=== PATIENT | female | born 1970 | race Asian ===

== ENCOUNTER 2020-02-07 09:28 | Emergency (ER) | payer BC, OTHER ==
[~2020-02-07] VITALS: Ht 157.5 cm; Wt 64.4 kg
--- NOTE | 2020-02-07 09:40 | NUR ---
Chest pain earlier this am. Patient a/ox4, breathing even and unlabored, denies pain at this time. Needs attended. Kept comfortable, attached to the library monitor.
--- NOTE | 2020-02-07 09:50 | NUR ---
Patient seen and evaluated by Dr. Grider.
[2020-02-07] MEDS ORDERED: CLONIDINE HCL 0.1 MG TABLET ONE (09:58)
[2020-02-07] MEDS: CLONIDINE HCL 0.1 MG TABLET PO ONE (10:01)
[2020-02-07 10:33] LABS: BASOPHILS % (AUTO) 0.7 % (0.0-2.0); EOSINOPHILS % (AUTO) 6.1 % (0.0-6.0); HEMATOCRIT 40 % (33-45); HEMOGLOBIN 12.6 g/dL (11.5-14.8); LYMPHOCYTES # (AUTO) 2.3 /CMM (0.8-4.8); LYMPHOCYTES % (AUTO) 40.8 % (20.0-44.0); MEAN CORPUSCULAR HGB CONC 32 g/dl (31.0-36.0); MEAN CORPUSCULAR VOLUME 80 fL (82-100); MONOCYTES # (AUTO) 0.4 /CMM (0.1-1.30); MONOCYTES % (AUTO) 6.5 % (2.0-12.0); NEUTROPHILS # (AUTO) 2.6 /CMM (1.8-8.9); NEUTROPHILS % (AUTO) 45.9 % (43.0-81.0); PLATELET COUNT (AUTO) 234 /CMM (150-450); RED BLOOD CELL COUNT(AUTO) 4.98 MIL/uL (4.0-5.2); WHITE BLOOD COUNT (AUTO) 5.6 K/uL (4.3-11.0)
[2020-02-07 10:42] LABS: CALCIUM, SERUM 8.7 mg/dL (8.5-10.1); CREATININE 0.5 mg/dL (0.6-1.3); POTASSIUM 3.4 mmol/L (3.5-5.1)
[2020-02-07 11:12] VITALS: BP 149/81
--- NOTE | 2020-02-07 11:12 | NUR ---
Patient a/ox4, breathing even and unlabored, no sob noted, needs attended, denies pain. BP improved. IV removed. Catheter intact and site benign. Pressure and 4x4 applied to site. No bleeding noted.Patient discharged to home in stable condition. Written and verbal after care instructions given. Patient verbalizes understanding of instruction.
== END 2020-02-07 11:12 | disposition home or self-care (01) ==
LOC: ER 09:33
DX: I10 Essential (primary) hypertension (principal); R07.89 Other chest pain
CPT/HCPCS: 36415; 71045-TC; 80048-TC; 84484-TC; 85025-TC

== ENCOUNTER 2020-04-26 08:51 | Outpatient (CLI) | payer BC, OTHER ==
[2020-04-26 10:13] LABS: CALCIUM, SERUM 8.4 mg/dL (8.5-10.1); CREATININE 0.6 mg/dL (0.6-1.3); POTASSIUM 3.5 mmol/L (3.5-5.1)
== END 2020-04-26 23:59 | disposition home or self-care (01) ==
LOC: LAB 08:51
PROVIDERS: ATTEND Family Medicine
DX: E83.51 Hypocalcemia (principal); R25.2 Cramp and spasm; Z79.899 Other long term (current) drug therapy
CPT/HCPCS: 36415; 80048-TC

== ENCOUNTER 2020-06-05 09:06 | Outpatient (CLI) | payer BC, OTHER ==
[2020-06-05 09:59] LABS: BASOPHILS % (AUTO) 0.6 % (0.0-2.0); EOSINOPHILS % (AUTO) 4.1 % (0.0-6.0); HEMATOCRIT 41 % (33-45); HEMOGLOBIN 13.3 g/dL (11.5-14.8); LYMPHOCYTES # (AUTO) 2.1 /CMM (0.8-4.8); LYMPHOCYTES % (AUTO) 30.4 % (20.0-44.0); MEAN CORPUSCULAR HGB CONC 33 g/dl (31.0-36.0); MEAN CORPUSCULAR VOLUME 79 fL (82-100); MONOCYTES # (AUTO) 0.4 /CMM (0.1-1.30); MONOCYTES % (AUTO) 6.1 % (2.0-12.0); NEUTROPHILS # (AUTO) 4.1 /CMM (1.8-8.9); NEUTROPHILS % (AUTO) 58.8 % (43.0-81.0); PLATELET COUNT (AUTO) 241 /CMM (150-450); RED BLOOD CELL COUNT(AUTO) 5.17 MIL/uL (4.0-5.2); WHITE BLOOD COUNT (AUTO) 6.9 K/uL (4.3-11.0)
[2020-06-05 10:05] LABS: ALBUMIN 4.2 g/dL (3.4-5.0); BILIRUBIN,TOTAL 0.5 mg/dL (0.2-1.0); CALCIUM, SERUM 9.6 mg/dL (8.5-10.1); CREATININE 0.7 mg/dL (0.6-1.3); POTASSIUM 3.5 mmol/L (3.5-5.1); TOTAL PROTEIN, SERUM 8.4 g/dL (6.4-8.2)
[2020-06-05 10:07] LABS: BILIRUBIN,URINE NEGATIVE (NEGATIVE); COLOR,URINE YELLOW (YELLOW); LEUKOCYTE ESTERASE ,URINE TRACE (NEGATIVE); NITRITE, URINE POSITIVE (NEGATIVE); PROTEIN,URINE NEGATIVE (NEGATIVE); UGLUCOSE NEGATIVE (NEGATIVE); UROBILINOGEN,URINE 0.2 EU/dL (0.2)
[2020-06-05 10:17] LABS: THYROID STIMULATING HORMONE 1.443 uIU/mL (0.358-3.74)
[2020-06-05 12:07] LABS: BACTERIA,URINE Many /HPF (None Seen); CALCIUM OXALATE CRYSTALS,UR Few /HPF (None Seen); RBC,URINE 0-2 /HPF (0-2); SQUAMOUS EPITHELIAL CELL,UR Few /HPF (None Seen)
== END 2020-06-05 23:59 | disposition home or self-care (01) ==
LOC: LAB 09:06
PROVIDERS: ATTEND Family Medicine
DX: I10 Essential (primary) hypertension (principal); E55.9 Vitamin D deficiency, unspecified; Z79.899 Other long term (current) drug therapy
CPT/HCPCS: 36415; 80053-TC; 80061-TC; 81001; 82306; 84439-TC; 84443-TC; 85025-TC; 87086-TC; 87186-TC

== ENCOUNTER 2020-10-21 09:38 | Outpatient (CLI) | payer BC, OTHER ==
[2020-10-21 10:18] LABS: BASOPHILS % (AUTO) 0.8 % (0.0-2.0); EOSINOPHILS % (AUTO) 4.7 % (0.0-6.0); HEMATOCRIT 38 % (33-45); HEMOGLOBIN 12.4 g/dL (11.5-14.8); LYMPHOCYTES # (AUTO) 2.2 K/uL (0.8-4.8); LYMPHOCYTES % (AUTO) 39.8 % (20.0-44.0); MEAN CORPUSCULAR HGB CONC 33 g/dl (31.0-36.0); MEAN CORPUSCULAR VOLUME 80 fL (82-100); MONOCYTES # (AUTO) 0.4 K/uL (0.1-1.30); MONOCYTES % (AUTO) 6.8 % (2.0-12.0); NEUTROPHILS # (AUTO) 2.6 K/uL (1.8-8.9); NEUTROPHILS % (AUTO) 47.9 % (43.0-81.0); PLATELET COUNT (AUTO) 239 K/uL (150-450); RED BLOOD CELL COUNT(AUTO) 4.74 MIL/uL (4.0-5.2); WHITE BLOOD COUNT (AUTO) 5.4 K/uL (4.3-11.0)
[2020-10-21 10:22] LABS: BILIRUBIN,URINE NEGATIVE (NEGATIVE); COLOR,URINE YELLOW (YELLOW); LEUKOCYTE ESTERASE ,URINE TRACE (NEGATIVE); NITRITE, URINE NEGATIVE (NEGATIVE); PROTEIN,URINE NEGATIVE (NEGATIVE); UGLUCOSE NEGATIVE (NEGATIVE); UROBILINOGEN,URINE 0.2 EU/dL (0.2)
[2020-10-21 11:30] LABS: ALBUMIN 4.2 g/dL (3.4-5.0); BILIRUBIN,TOTAL 0.4 mg/dL (0.2-1.0); CALCIUM, SERUM 8.6 mg/dL (8.5-10.1); CREATININE 0.6 mg/dL (0.6-1.3); POTASSIUM 3.8 mmol/L (3.5-5.1); TOTAL PROTEIN, SERUM 8.4 g/dL (6.4-8.2)
[2020-10-21 11:45] LABS: THYROID STIMULATING HORMONE 0.926 uIU/mL (0.358-3.74)
[2020-10-21 12:07] LABS: BACTERIA,URINE 4+ /HPF (None Seen); RBC,URINE NONE SEEN /HPF (0-2)
[2020-10-23 17:06] LABS: H. PYLORI AB IgA <9.0 units (0.0-8.9)
== END 2020-10-21 23:59 | disposition home or self-care (01) ==
LOC: LAB 09:38
PROVIDERS: ATTEND Family Medicine
DX: R14.0 Abdominal distension (gaseous) (principal); R03.0 Elevated blood-pressure reading, without diagnosis of hypertension; Z00.01 Encounter for general adult medical examination with abnormal findings
CPT/HCPCS: 36415; 80053-TC; 80061-TC; 81001; 82306; 84439-TC; 84443-TC; 85025-TC; 86677; 86803; 87086-TC

== ENCOUNTER 2020-12-13 10:29 | Outpatient (CLI) | payer BC, OTHER | END 2020-12-13 23:59 | disposition home or self-care (01) | LOC: LAB 10:29 | PROVIDERS: ATTEND Family Medicine | DX: N39.0 Urinary tract infection, site not specified (principal) | CPT/HCPCS: 87086-TC; 87186-TC ==

== ENCOUNTER 2021-01-28 13:30 | Outpatient (CLI) | payer BC, OTHER | END 2021-01-28 23:59 | disposition home or self-care (01) | LOC: CARD 13:30 | PROVIDERS: ATTEND Family Medicine | DX: I51.7 Cardiomegaly (principal) | CPT/HCPCS: 93307-TC ==

== ENCOUNTER 2021-02-28 15:59 | Emergency (ER) | payer BC, OTHER ==
[~2021-02-28] VITALS: Ht 152.4 cm; Wt 59.0 kg
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
[2021-02-28] MEDS ORDERED: BACI/NEOM/POLY B OINT PKT 1 UDPKT PACKET TP ONE (16:30)
[2021-02-28] MEDS ORDERED: TDAP [DIPH/PERTUSSIS/TET] 0.5 ML VIAL IM ONE ×2 (16:30→16:49)
[2021-02-28] MEDS ORDERED: BACI/NEOM/POLY B OINT PKT 1 UDPKT PACKET ONE (16:49)
[2021-02-28 16:55] VITALS: BP 135/78
--- NOTE | 2021-02-28 16:55 | NUR ---
Patient discharged to home in stable condition. Written and verbal after care instructions given. Patient verbalizes understanding of instruction.
== END 2021-02-28 16:55 | disposition home or self-care (01) ==
LOC: ER 16:02
DX: T23.272A Burn of second degree of left wrist, initial encounter (principal); I11.9 Hypertensive heart disease without heart failure; Z60.2 Problems related to living alone; X12.XXXA Contact with other hot fluids, initial encounter; Y93.89 Activity, other specified; Y92.89 Other specified places as the place of occurrence of the external cause; Y99.0 Civilian activity done for income or pay
CPT/HCPCS: 90715

== ENCOUNTER 2021-05-01 10:44 | Outpatient (CLI) | payer BC | END 2021-05-01 23:59 | disposition home or self-care (01) | LOC: US 10:44 | PROVIDERS: ATTEND Family Medicine | DX: N81.4 Uterovaginal prolapse, unspecified (principal) | CPT/HCPCS: 76856-TC ==

== ENCOUNTER → 2021-08-15 | Outpatient (CLI) | payer BC | END | disposition home or self-care (01) | LOC: US 10:53 | PROVIDERS: ATTEND Family Medicine | DX: R32 Unspecified urinary incontinence (principal) | CPT/HCPCS: 76856-TC; 87086-TC ==

== ENCOUNTER 2021-10-17 09:58 | Emergency (ER) | payer BC, OTHER ==
[~2021-10-17] VITALS: Ht 157.5 cm; Wt 58.5 kg
[2021-10-17 10:24] VITALS: BP 147/88
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
--- NOTE | 2021-10-17 11:00 | NUR ---
SEEN BY DR. MCKEON FOR EVAL
[2021-10-17] MEDS ORDERED: predniSONE 20 MG TABLET ONE (11:13)
[2021-10-17] MEDS ORDERED: LORATADINE 10 MG TABLET ONE (11:13)
[2021-10-17] MEDS ORDERED: PRED20TA PO (11:29)
[2021-10-17] MEDS ORDERED: CEPH500C2 PO (11:29)
[2021-10-17] MEDS ORDERED: predniSONE 50 MG TABLET PO ONE (11:30)
[2021-10-17] MEDS ORDERED: LORATADINE 10 MG TABLET PO SCH (11:30)
--- NOTE | 2021-10-17 11:43 | NUR ---
Patient discharged to home in stable condition. Written and verbal after care instructions given. Patient verbalizes understanding of instruction.
== END 2021-10-17 11:45 | disposition home or self-care (01) ==
LOC: ER 10:08
DX: R21 Rash and other nonspecific skin eruption (principal); I10 Essential (primary) hypertension; Z60.2 Problems related to living alone
CPT/HCPCS: 99283; J7512

== ENCOUNTER 2022-01-16 09:06 | Outpatient (CLI) | payer BC ==
[~2022-01-16 09:06] MED LIST: CEPH500C2 PO; PRED20TA PO
== END 2022-01-16 23:59 | disposition home or self-care (01) ==
LOC: US 09:06
PROVIDERS: ATTEND Family Medicine
DX: D25.9 Leiomyoma of uterus, unspecified (principal); R10.2 Pelvic and perineal pain
CPT/HCPCS: 76856-TC

== ENCOUNTER 2022-01-16 09:47 | Outpatient (CLI) | payer BC | END 2022-01-16 23:59 | disposition home or self-care (01) | LOC: LAB 09:47 | PROVIDERS: ATTEND Family Medicine | DX: N32.81 Overactive bladder (principal) | CPT/HCPCS: 87086-TC ==

== ENCOUNTER 2022-03-24 12:13 | Outpatient (CLI) | payer BC | END 2022-03-24 23:59 | disposition home or self-care (01) | LOC: RAD 12:13 | PROVIDERS: ATTEND Family Medicine | DX: I51.7 Cardiomegaly (principal); J98.6 Disorders of diaphragm; R07.9 Chest pain, unspecified | CPT/HCPCS: 71046 ==